=== PATIENT | female | born 1955 | race Caucasian/White ===

== ENCOUNTER 2017-10-13 09:00 | Outpatient (CLI) | payer OTHER ==
[~2017-10-13] VITALS: Ht 172.7 cm; Wt 85.3 kg
[2017-10-13] MEDS ORDERED: CALC-654 PO (09:16)
[2017-10-13] MEDS ORDERED: ASCO-262 PO (09:16)
[2017-10-13] MEDS ORDERED: ESTR0.9T PO (09:16)
[2017-10-13] MEDS ORDERED: ASPI-586 PO (09:16)
[2017-10-13] MEDS ORDERED: MULT-141 PO (09:16)
== END 2017-10-13 09:35 | disposition home or self-care (01) ==
LOC: PREOP 09:00
PROVIDERS: ATTEND Surgery
DX: Z01.818 Encounter for other preprocedural examination (principal); R19.7 Diarrhea, unspecified; R19.4 Change in bowel habit

== ENCOUNTER 2017-10-15 09:58 | Day surgery (SDC) | payer OTHER ==
[~2017-10-15] VITALS: Ht 172.7 cm; Wt 85.3 kg
[~2017-10-15 09:58] MED LIST: ASCO-262 PO; ASPI-586 PO; CALC-654 PO; ESTR0.9T PO; MULT-141 PO
--- OUTSIDE RECORDS SUMMARY | 2017-10-15 10:01 | XMS REPORT | Continuity of Care Document ---
Author Author [facility] Organization [facility] Address Unknown Phone Unavailable Allergies There is no data. Medications There is no data. 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 Results There is no data. Encounters ACCT No. Visit Date/Time Discharge Status Pt. Type Provider Facility Loc./Unit Complaint [id number] 10/08/2017 05:35:00 10/08/2017 23:59:59 CLS Outpatient ARAM ROBLES MD [facility] PREOP COLONOSCOPY [id number] 08/11/2014 11:15:00 08/11/2014 23:59:59 CLS Outpatient [facility] RAD LT TOE PAIN [id number] 10/15/2017 09:30:00 PEN Preadmit ARAM ROBLES MD [facility] ENDO DIARRHEA/CHANGE IN BOWEL HABITS
[2017-10-15] MEDS ORDERED: NS IV 500 ML 500 ML IV PRN (10:05)
[2017-10-15] MEDS ORDERED: NS IV 500 ML 500 ML ONE (10:06)
[2017-10-15 10:10] VITALS: BP 123/75
[2017-10-15] MEDS ORDERED: LIDOCAINE JELLY 2% (XYLOCAINE) 5 ML TUBE MM PRN (10:45)
[2017-10-15] MEDS ORDERED: LIDOCAINE JELLY 2% (XYLOCAINE) 5 ML TUBE ONE (11:16)
[2017-10-15] MEDS ORDERED: fentaNYL INJECTION 100 MCG/2 ML AMP ONE ×2 (11:16→11:17)
[2017-10-15] MEDS ORDERED: MIDAZOLAM 2 MG/2 ML (VERSED) VIAL ONE ×4 (11:17)
[2017-10-15] MEDS: fentaNYL INJECTION 100 MCG/2 ML AMP IVP PRN ×4 (11:30→11:50)
--- NOTE | 2017-10-15 11:37 | Progress Note-Pre Operative ---
Pre-Operative Progress Note H&P Reviewed The H&P was reviewed, patient examined and no changes noted. Date Seen by Provider: Oct 15, 2017 Time Seen by Provider: 10:30 Date H&P Reviewed: Oct 15, 2017 Time H&P Reviewed: 10:30 Pre-Operative Diagnosis: screening colonoscopy ARAM ROBLES MD Oct 15, 2017 11:37 am
--- NOTE | 2017-10-15 11:37 | Conscious Sedation/ASA ---
Conscious Sedation Pre-Proced Time Reviewed: 10:30 ASA Class: 2 Airway Mallampati Classification: ([place] appropriate class) I. II. III, IV Lungs Heart ASA score ASA 1: a normal healthy patient ASA 2: a patient with a mild systemic disease (mid diabetes, controlled hypertension, obesity ASA 3: a patient with a severe systemic disease that limits activity (angina , COPD, prior Myocardial infarction) ASA 4: a patient with an incapacitating disease that is a constant threat to life (CHF, renal failure) ASA 5: a moribund patient not expected to survive 24 hrs. (ruptured aneurysm) ASA 6: a declared brain patient whose organs are being harvested. For emergent operations, add the letter E after the classification Grade 2 Sedation Plan: Analgesia, Amnesia, Plan communicated to team members, Discussed options with patient/fam, Discussed risks with patient/fam Note The patient is an appropriate candidate to undergo the planned procedure, sedation, and anesthesia. The patient immediately re-assessed prior to indication. ARAM ROBLES MD Oct 15, 2017 11:37 am
[2017-10-15] MEDS: MIDAZOLAM 2 MG/2 ML (VERSED) VIAL IVP PRN ×4 (11:41→11:53)
[2017-10-15] MEDS ORDERED: ACETAMINOPHEN 325 MG TABLET PO PRN (11:45)
[2017-10-15] MEDS ORDERED: ONDANSETRON 4 MG/2 ML (SDV) Z0FRAN IV PRN (11:45)
[2017-10-15] MEDS ORDERED: HYDROcodone/APAP 5 MG/325 MG (LORTAB) TAB PO PRN (11:45)
[2017-10-15] MEDS ORDERED: morphine INJ 10 MG/ML 1ML (SYR OR VIAL) IV PRN (11:45)
--- NOTE | 2017-10-15 12:11 | Progress Note-Post Operative ---
Post-Operative Progess Note Surgeon (s)/Pharmacy Salesperson (s) Surgeon ARAM ROBLES MD Pharmacy Salesperson: none Pre-Operative Diagnosis screening colonoscopy Post-Operative Diagnosis mild chronic stage 1 ext and int hemorrhoids. Procedure & Operative Findings Date of Procedure 10/15/17 Procedure Performed/Findings Colonoscopy. Anesthesia Type CS Estimated Blood Loss Estimated blood loss (mL): minimal Specimens/Packing Specimens Removed cecum, ascending, transverse, descending, rectum. ARAM ROBLES MD Oct 15, 2017 12:11 pm
--- NOTE | 2017-10-15 12:12 | Discharge Inst-Surgical ---
D/C Lap Instructions-TRAVIS Follow Up Appt in 2 weeks Activity as tolerated High Fiber Diet 25g or more per day Avoid Alcohol, Caffeine, Spicy [place] and Acid foods. Drink 64 fluid oz or more of fluids per day. Symptoms to Report: Fever over 101 degree F, Nausea/Vomiting If any problems/questions: Contact your physician or go to Emergency Room ARAM ROBLES MD Oct 15, 2017 12:12 pm
[2017-10-15 12:45] VITALS: BP 143/71
[2017-10-15 13:10] VITALS: BP 127/70
[2017-10-15 13:12] VITALS: BP 127/70
--- NOTE | 2017-10-16 05:33 | OPERATIVE REPORT ---
DATE OF SERVICE: 10/15/2017 ATTENDING PRIMARY CARE PHYSICIAN: Keesha Wall DO PREOPERATIVE DIAGNOSIS: Diarrhea, change in bowel habits. POSTOPERATIVE DIAGNOSIS: Mild chronic stage I external and internal hemorrhoids. Remainder of the rectum and colon were normal. PROCEDURE: Colonoscopy with biopsy. SURGEON: Aram Robles MD ANESTHESIA: Conscious sedation. ESTIMATED BLOOD LOSS: Minimal. FINDINGS: Chronic stage I external and internal hemorrhoids, not actively edematous nor inflamed and no bleeding. The remainder of the rectum and colon were normal. There were no mucosal inflammatory changes as well as no polyps or any neoplasms identified. DISPOSITION: The patient tolerated the procedure well. INDICATIONS: The patient is a 62-year-old female in need of a screening colonoscopy for her last one was done at age 49, 13 years ago. She does report a change in bowel habits in the last several months including diarrhea. She states that she has not changed her diet, water drinking source as well as no recent travel. She also does not report any red blood per rectum nor any dark tarry stools. DESCRIPTION OF PROCEDURE: The patient was brought to the endoscopy suite, laid in the left lateral decubitus position. After adequate IV pain and sedative medications and conscious sedation anesthesia, a digital rectal examination was performed. Mild chronic stage I external and internal hemorrhoids were identified, which were not actively edematous nor inflamed and no bleeding. Normal sphincter tone was felt and there were no palpable masses. The endoscope was then intubated into the anus and rectum, gently insufflated. The endoscope was then advanced through the valves of [place] in the rectum with no polyps or any neoplasms identified as well as no mucosal inflammatory changes to indicate any active proctitis. Endoscope was then advanced to the sigmoid colon where no diverticulosis identified. We then proceeded to remainder of the descending, transverse and ascending colon to the cecum. These segments were normal. There were no polyps, neoplasms as well as no mucosal inflammatory changes to indicate any active colitis. The endoscope was slowly withdrawn while doing random biopsies of the cecum, ascending colon, transverse colon, descending colon and the rectum. This was done using biopsy forceps with visualization of good hemostasis. The patient tolerated the procedure well. We will await the biopsy results; however, we feel that this is most likely secondary to a diet and normal age related changes. We will recommend a high fiber diet with at least 25 to 30 grams of fiber to promote soft stools on a daily basis which is not a watery diarrhea as well as to prevent hard stools and constipation. Job ID: [id number] DocumentID: [id number] Dictated Date: 10/15/2017 12:07:14 Ornithology Teacher Date: 10/16/2017 05:32:35 Dictated By: ARAM ROBLES MD
== END 2017-10-15 13:15 | disposition home or self-care (01) ==
LOC: ENDO 09:58
PROVIDERS: ATTEND Surgery
DX: R19.4 Change in bowel habit (principal); R19.7 Diarrhea, unspecified; K64.0 First degree hemorrhoids

== ENCOUNTER 2021-03-21 10:55 | Outpatient (CLI) | payer MEDICARE ==
[~2021-03-21] VITALS: Ht 170.1 cm; Wt 81.3 kg
[2021-03-21 11:01] VITALS: BP 138/72
[2021-03-21] MEDS ORDERED: ONDANSETRON 4 MG/2 ML (SDV) Z0FRAN IV PRN (11:45)
[2021-03-21] MEDS ORDERED: ACETAMINOPHEN 500 MG TAB (TYLENOL) PO PRN (11:45)
[2021-03-21] MEDS ORDERED: diphenhydrAMINE 50 MG/ML INJ (BENADRYL) IV PRN (11:45)
[2021-03-21] MEDS ORDERED: EPINEPHrine INJECTION 1 MG/ML AMP IM PRN (11:45)
[2021-03-21] MEDS ORDERED: CASIRIVIMAB/IMDEVIMAB 1,200 MG in NS (IVPB) 250 ML IV ONE (11:45)
[2021-03-21 12:30] VITALS: BP 153/68
[2021-03-21 12:33] VITALS: BP 125/66
== END 2021-03-21 13:18 | disposition home or self-care (01) ==
LOC: INFUSION 10:55
PROVIDERS: ATTEND Physician Assistant
DX: U07.1 COVID-19 (principal)